=== PATIENT | male | born 1975 | race African-American/Black ===

== ENCOUNTER 2023-11-16 18:06 | Emergency (ER) | payer SELFPAY ==
[2023-11-16 19:25] LABS: #Eosinphils 0.2 thou/uL (0.0-0.7); #Monocytes 0.9 thou/uL (0.11-0.59); %Basophils 0.3 % (0.0-1.0); %Eosinophils 2.1 % (0.0-10.0); %Lymphocytes 21.3 % (21.0-51.0); %Monocytes 7.8 % (0.0-10.0); %Neutrophils 68.2 % (42.0-75.0); Hematocrit 39.3 % (42.0-52.0); Hemoglobin 13.2 g/dL (14.0-18.0); Mean Corpuscular HGB CONC 33.6 g/dL (32.0-36.0); Mean Corpuscular Hemoglobin 30.2 pg (27.0-31.0); Mean Corpuscular Volume 89.9 fl (78.0-98.0); Mean Platelet Volume 9.5 fL (7.4-10.4); Platelet Count 352 10x3/uL (130-400); RBC Distribution Width 12.9 % (11.5-14.5); Red Blood Cell (RBC) Count 4.37 mill/uL (4.70-6.10); White Blood Cell (WBC) Count 11.7 10x3/uL (4.8-10.8)
[2023-11-16 19:56] LABS: ALT (SGPT) 14 U/L (8-55); AST (SGOT) 12 U/L (5-34); Albumin 3.7 g/dL (3.5-5.0); Alkaline Phosphatase 70 U/L (40-110); Anion Gap 12 mmol/L (10-20); BUN (Urea Nitrogen) 18 mg/dL (8.9-20.6); Bilirubin, Total 0.4 mg/dL (0.2-1.2); Calc. Creatinine Clearance 0 mL/min (70-130); Calcium 9.1 mg/dL (7.8-10.44); Carbon Dioxide 24 mmol/L (22-29); Chloride 105 mmol/L (98-107); Estimated GFR 48; Globulin 4.3 g/dL (2.4-3.5); Glucose 116 mg/dL (70-105); Potassium 4.9 mmol/L (3.5-5.1); Sodium 136 mmol/L (136-145)
[2023-11-16] MEDS ORDERED: Lidocaine 1% MPF 2 ML VIAL ONE (20:40)
[2023-11-16] MEDS ORDERED: cefTRIAXone (ROCEPHIN) 500 MG VIAL ONE (20:40)
== END 2023-11-16 20:49 | disposition home or self-care (01) ==
LOC: ERS 18:06
DX: L03.115 Cellulitis of right lower limb (principal); I10 Essential (primary) hypertension; F17.210 Nicotine dependence, cigarettes, uncomplicated; Z79.899 Other long term (current) drug therapy
CPT/HCPCS: 36415; 80053; 85025; 86140; 96372; 99283; J0696

== ENCOUNTER 2024-07-23 21:51 | Inpatient (IN) | payer SELFPAY ==
[2024-07-23 22:30] LABS: #Basophils 0.03 10x3/uL (0.0-0.2); %Basophils 0.3 % (0.0-1.0); %Eosinophils 1.7 % (0.0-10.0); %Lymphocytes 20.1 % (21.0-51.0); %Monocytes 10.9 % (0.0-10.0); %Neutrophils 66.7 % (42.0-75.0); Hematocrit 43.7 % (42.0-52.0); Mean Corpuscular HGB CONC 34.3 g/dL (32.0-36.0); Mean Corpuscular Hemoglobin 31.1 pg (27.0-31.0); Mean Corpuscular Volume 90.7 fL (78.0-98.0); Mean Platelet Volume 10.6 fL (7.4-10.4); Platelet Count 251 10x3/uL (130-400); RBC Distribution Width 13.7 % (11.5-14.5); Red Blood Cell (RBC) Count 4.82 mill/uL (4.70-6.10)
[2024-07-23 23:03] LABS: ALT (SGPT) 27 U/L (8-55); AST (SGOT) 19 U/L (5-34); Albumin 3.7 g/dL (3.5-5.0); Alkaline Phosphatase 72 U/L (40-110); Anion Gap 15 mmol/L (10-20); BUN (Urea Nitrogen) 18 mg/dL (8.9-20.6); Bilirubin, Total 0.5 mg/dL (0.2-1.2); Calc. Creatinine Clearance 0 mL/min (70-130); Calcium 9.2 mg/dL (7.8-10.44); Carbon Dioxide 21 mmol/L (22-29); Chloride 105 mmol/L (98-107); Estimated GFR 35; Globulin 3.2 g/dL (2.4-3.5); Glucose 105 mg/dL (70-105); Lipase 37 U/L (8-78); Potassium 3.8 mmol/L (3.5-5.1); Protein, Total 6.9 g/dL (6.0-8.3); Sodium 137 mmol/L (136-145)
[2024-07-23] MEDS ORDERED: Morphine 4 MG/ML VIAL ONE (23:16)
[2024-07-23] MEDS ORDERED: Ondansetron PF 4 MG/2 ML Vial ONE (23:16)
[2024-07-23] MEDS ORDERED: Ketorolac Tromethamine 30 MG (1 mL) VIAL ONE (23:16)
[2024-07-24 01:06] LABS: Bacteria/HPF None Seen HPF (None Seen); Bilirubin Negative (Negative); Blood, Urine Negative (Negative); CAUTI Indications for Culture Dysuria,urgency,freq; Clarity Clear (Clear); Glucose, Urine (Dipstick) Normal (Negative); Ketone, Urine Negative (Negative); Leukocyte 75 Leu/uL (Negative); Nitrite Negative (Negative); Protein, Urine (Dipstick) Negative (Neg-Trace); Specific Gravity, Urine 1.021 (1.002-1.036); Squamous Epithelial 0-3 HPF (0-3); Urobilinogen Normal mg/dL (Less than 2); pH, Urine 5.5 (5.0-9.0)
[2024-07-24 01:07] LABS: Urine Culture Reflex Yes Yes
[2024-07-24] MEDS ORDERED: Ondansetron ODT 4 MG TAB PO PRN (01:36)
[2024-07-24] MEDS ORDERED: Morphine 4 MG/ML VIAL ONE (02:40)
[2024-07-24 02:49] LABS: #Basophils 0.04 10x3/uL (0.0-0.2); %Basophils 0.3 % (0.0-1.0); %Monocytes 11.6 % (0.0-10.0); %Neutrophils 70.7 % (42.0-75.0); Hematocrit 44.5 % (42.0-52.0); Hemoglobin 14.8 g/dL (14.0-18.0); Mean Corpuscular HGB CONC 33.3 g/dL (32.0-36.0); Mean Corpuscular Hemoglobin 30.6 pg (27.0-31.0); Mean Corpuscular Volume 92.1 fL (78.0-98.0); Mean Platelet Volume 11.2 fL (7.4-10.4); Platelet Count 272 10x3/uL (130-400); RBC Distribution Width 13.7 % (11.5-14.5); Red Blood Cell (RBC) Count 4.83 mill/uL (4.70-6.10)
[2024-07-24 05:13] LABS: ALT (SGPT) 26 U/L (8-55); AST (SGOT) 31 U/L (5-34); Albumin 3.5 g/dL (3.5-5.0); Alkaline Phosphatase 67 U/L (40-110); Anion Gap 15 mmol/L (10-20); BUN (Urea Nitrogen) 19 mg/dL (8.9-20.6); Bilirubin, Total 0.3 mg/dL (0.2-1.2); Calc. Creatinine Clearance 0 mL/min (70-130); Calcium 8.4 mg/dL (7.8-10.44); Carbon Dioxide 20 mmol/L (22-29); Chloride 107 mmol/L (98-107); Estimated GFR 38; Globulin 3.5 g/dL (2.4-3.5); Glucose 83 mg/dL (70-105); Potassium 4.4 mmol/L (3.5-5.1); Sodium 138 mmol/L (136-145)
[2024-07-24] MEDS: Nicotine 7 MG PATCH TD SCH (05:53)
[2024-07-24] MEDS: cefTRIAXone\\ROCEPHIN 1 GM in Sodium Chloride 0.9% 100 ML IVPB SCH (05:54)
[2024-07-24] MEDS: D5 1/2 NS w/20 mEq KCL 1,000 ML IV SCH (05:55)
[2024-07-24] MEDS: Famotidine 20 MG TAB PO SCH (08:48)
[2024-07-24] MEDS: Enoxaparin 40 MG (0.4 mL) SYRINGE SC SCH (08:48)
[2024-07-24] MEDS: traMADol HCl 50 MG TAB PO PRN (09:22)
[2024-07-24] MEDS ORDERED: fentaNYL PF 100 MCG/2 ML SYRINGE ONE (11:38)
[2024-07-24] MEDS ORDERED: PROPOFOL 20 ML ONE (11:38)
[2024-07-24] MEDS ORDERED: Lidocaine 2% PF 5 ML VIAL ONE (11:38)
[2024-07-24] MEDS ORDERED: PHENYLEPHRINE-NS 100 MCG/ML 10 ML SYRINGE ONE (12:00)
[2024-07-24] MEDS ORDERED: Ondansetron PF 4 MG/2 ML Vial ONE (12:01)
[2024-07-24] MEDS ORDERED: Dexamethasone 20 MG/5 ML VIAL ONE (12:01)
[2024-07-24] MEDS ORDERED: ePHEDrine Sulfate 50 MG/10 ML VIAL ONE (12:41)
[2024-07-24] MEDS ORDERED: Iopamidol 30 ML ONE (12:52)
[2024-07-24] MEDS ORDERED: Labetalol HCl 100 MG/20 ML VIAL ONE (13:06)
[2024-07-24] MEDS ORDERED: hydrALAZINE 20 MG/ML VIAL ONE (13:13)
[2024-07-24] MEDS: Acetaminophen 325 MG TAB PO PRN (16:38)
[2024-07-25] MEDS: Losartan 25 MG TAB PO SCH (05:46)
[2024-07-25 06:23] LABS: #Basophils Less than 0.03 10x3/uL (0.0-0.2); #Eosinophils Less than 0.03 10x3/uL (0.0-0.7); %Basophils 0.1 % (0.0-1.0); %Lymphocytes 9.6 % (21.0-51.0); %Monocytes 4.2 % (0.0-10.0); %Neutrophils 85.7 % (42.0-75.0); Hematocrit 44.7 % (42.0-52.0); Hemoglobin 14.8 g/dL (14.0-18.0); Mean Corpuscular HGB CONC 33.1 g/dL (32.0-36.0); Mean Corpuscular Hemoglobin 30.3 pg (27.0-31.0); Mean Corpuscular Volume 91.6 fL (78.0-98.0); Mean Platelet Volume 10.7 fL (7.4-10.4); Platelet Count 251 10x3/uL (130-400); RBC Distribution Width 13.5 % (11.5-14.5); Red Blood Cell (RBC) Count 4.88 mill/uL (4.70-6.10)
[2024-07-25 06:36] LABS: Anion Gap 15 mmol/L (10-20); BUN (Urea Nitrogen) 18 mg/dL (8.9-20.6); Calc. Creatinine Clearance 139 mL/min (70-130); Carbon Dioxide 21 mmol/L (22-29); Chloride 104 mmol/L (98-107); Estimated GFR 64; Glucose 108 mg/dL (70-105); Potassium 4.4 mmol/L (3.5-5.1); Sodium 136 mmol/L (136-145)
[2024-07-25 06:57] LABS: Calcium 9.5 mg/dL (7.8-10.44)
[2024-07-25] MEDS: Amlodipine 10 MG TAB PO SCH (07:10)
[2024-07-25] MEDS: Morphine 4 MG/ML VIAL SLOW IVP SCH (09:06)
[2024-07-25] MEDS: fentaNYL 50 mcg/mL 1 mL Vial SLOW IVP SCH ×2 (09:50→12:23)
[2024-07-25] MEDS: Ondansetron PF 4 MG/2 ML Vial IVP PRN (09:51)
[2024-07-25] MEDS: hydrALAZINE 20 MG/ML VIAL SLOW IVP PRN (12:23)
[2024-07-25] MEDS ORDERED: Iopamidol 30 ML ONE (16:34)
[2024-07-25] MEDS ORDERED: Midazolam HCl 2 mg/2 ml Vial ONE (16:41)
[2024-07-25] MEDS ORDERED: fentaNYL PF 100 MCG/2 ML SYRINGE ONE (17:08)
[2024-07-25] MEDS ORDERED: Dexamethasone 4 mg/ml Vial ONE (17:08)
[2024-07-25] MEDS ORDERED: Ondansetron PF 4 MG/2 ML Vial ONE (17:08)
[2024-07-25] MEDS ORDERED: PROPOFOL 40 ML ONE (17:08)
[2024-07-25] MEDS ORDERED: Lidocaine 1% PF 5 ML VIAL ONE (17:08)
[2024-07-25] MEDS ORDERED: PROPOFOL 20 ML ONE (17:24)
[2024-07-25] MEDS: hydrALAZINE 25 MG TAB PO SCH (18:24)
[2024-07-26 06:25] LABS: #Basophils Less than 0.03 10x3/uL (0.0-0.2); #Eosinophils Less than 0.03 10x3/uL (0.0-0.7); %Basophils 0.1 % (0.0-1.0); %Eosinophils 0.1 % (0.0-10.0); %Lymphocytes 8.2 % (21.0-51.0); %Monocytes 9.8 % (0.0-10.0); %Neutrophils 81.1 % (42.0-75.0); Hematocrit 44.4 % (42.0-52.0); Hemoglobin 14.9 g/dL (14.0-18.0); Mean Corpuscular HGB CONC 33.6 g/dL (32.0-36.0); Mean Corpuscular Hemoglobin 30.8 pg (27.0-31.0); Mean Corpuscular Volume 91.9 fL (78.0-98.0); Mean Platelet Volume 10.7 fL (7.4-10.4); Platelet Count 246 10x3/uL (130-400); Red Blood Cell (RBC) Count 4.83 mill/uL (4.70-6.10)
[2024-07-26 06:44] LABS: Anion Gap 15 mmol/L (10-20); BUN (Urea Nitrogen) 23 mg/dL (8.9-20.6); Calc. Creatinine Clearance 136 mL/min (70-130); Calcium 9.1 mg/dL (7.8-10.44); Carbon Dioxide 23 mmol/L (22-29); Chloride 105 mmol/L (98-107); Estimated GFR 63; Glucose 108 mg/dL (70-105); Potassium 4.2 mmol/L (3.5-5.1); Sodium 139 mmol/L (136-145)
[2024-07-26] MEDS: Losartan 25 MG TAB PO SCH (08:55)
[2024-07-26 11:53] VITALS: BP 170/112; TEMP 98
[2024-07-26] MEDS: hydrALAZINE 25 MG TAB PO SCH (12:33)
[2024-07-26] MEDS ORDERED: hydrALAZINE 25 MG TAB PO SCH (15:00)
== END 2024-07-26 12:55 | disposition home or self-care (01) | DRG 854 ==
LOC: ERS 21:51 → SURG A 07-24 00:57 → OBSVTOIN 07-25 10:10
PROVIDERS: ADMIT Internal Medicine; ATTEND Internal Medicine
PROC: BT1D1ZZ Fluoroscopy of Right Kidney, Ureter and Bladder using Low Osmolar Contrast (ICD-10-PCS; principal; 2024-07-24)
PROC: 0T768DZ Dilation of Right Ureter with Intraluminal Device, Via Natural or Artificial Opening Endoscopic (ICD-10-PCS; 2024-07-24)
PROC: 3E03329 Introduction of Other Anti-infective into Peripheral Vein, Percutaneous Approach (ICD-10-PCS; 2024-07-24)
PROC: 0T768DZ Dilation of Right Ureter with Intraluminal Device, Via Natural or Artificial Opening Endoscopic (ICD-10-PCS; 2024-07-25)
PROC: BT1D1ZZ Fluoroscopy of Right Kidney, Ureter and Bladder using Low Osmolar Contrast (ICD-10-PCS; 2024-07-25)
DX: A41.9 Sepsis, unspecified organism (principal); N13.6 Pyonephrosis; N17.9 Acute kidney failure, unspecified; R65.20 Severe sepsis without septic shock; R91.1 Solitary pulmonary nodule; Z90.49 Acquired absence of other specified parts of digestive tract; F17.210 Nicotine dependence, cigarettes, uncomplicated; Z79.899 Other long term (current) drug therapy; N18.2 Chronic kidney disease, stage 2 (mild); I12.9 Hypertensive chronic kidney disease with stage 1 through stage 4 chronic kidney disease, or unspecified chronic kidney disease
CPT/HCPCS: 36415; 74176; 74420; 80048; 80053; 81001; 83605; 83690; 84145; 85025; 87040; 87086; 96361; 96365; 96372; 96375; 96376; C1769; C2617; G0378; J0360; J0696; J1100; J1650; J1885; J2250; J2272; J2405; J2704; J3010; J3480; Q9967